=== PATIENT | male | born 1945 | race Caucasian/White ===

== ENCOUNTER 2021-11-06 11:59 | Emergency (ER) | payer MEDICARE ==
[~2021-11-06] VITALS: Ht 170.2 cm; Wt 106.6 kg
[~2021-11-06 11:59] MED LIST: ALBIPROI INH; ALBU.083IS; ALBU3IS; ALBU3IS INH; ALBU90I INH; ALBU90OI INH; ALBU90OI6 INH; ASPI81EC; BUDE6HFA INH; CIPR500 PO; CODACE30 PO; CYCL10 PO; DIAZ5 PO; DOXY100 PO; ENAL20; ENAL20 PO; FAMO20 PO; FAMO40 PO; FISH1000 PO; FLUSAL2505 IH; GLIP5 PO; GLUC500 PO; GLUCHON PO; HYDACE5 PO; HYDCHL25; HYDCHL50; HYDCHL50 PO; HYDPAM50 PO; IPRAIS; IPRAOI; LEVFLO500 PO; LISI20 PO; MECL25 PO; METF500; METF500 PO; MONT5TCH PO; MUPI2TO TOP; NAPR500 PO; OMEG1CAP30 PO; OXYACE5T PO; PENT400ER PO; POTCHL10ER; POTCHL10ER PO; POTCHL20ER; PRED10 PO; PRED20 PO; RXHYDACE PO
[2021-11-06 12:32] LABS: BASOPHILS ABSOLUTE AUTO 0.07 K/mm3 (0.00-0.23); BASOPHILS PERCENT AUTO 1 % (0-2); EOSINOPHILS ABSOLUTE AUTO 0.96 K/mm3 (0.00-0.68); EOSINOPHILS PERCENT AUTO 10 % (0-6); Hematocrit 38.8 % (37.0-53.0); Hemoglobin 12.8 g/dL (13.5-17.5); IMMATURE GRAN PERCENT AUTO 1 % (0-1); LYMPHOCYTES ABSOLUTE AUTO 2.33 K/mm3 (0.84-5.20); LYMPHOCYTES PERCENT AUTO 24 % (21-46); MONOCYTES PERCENT AUTO 6 % (4-13); Mean Corpuscular Volume 91 fL (80-100); Mean Platelet Volume 9.9 fL (9.1-12.4); NEUTROPHILS ABSOLUTE AUTO 5.56 K/mm3 (1.96-9.15); NEUTROPHILS PERCENT AUTO 58 % (41-73); Platelet Count 219 K/mm3 (150-400); RDW Standard Deviation 46.4 fL (35.1-46.3); Red Blood Cell Count 4.26 M/mm3 (4.30-5.90); White Blood Cell Count 9.62 K/mm3 (4.00-11.30)
[2021-11-06 12:50] LABS: Alanine Aminotransfer (ALT/SGP 74 U/L (12-78); Albumin, Blood 3.2 g/dL (3.4-5.0); Albumin/Globulin Ratio 0.8 (0.8-1.8); Alk Phos 42 U/L (50-136); Anion Gap 8 mmol/L (6-16); Aspartate Aminotrans (AST/SGOT 48 U/L (12-37); Bilirubin, Total 0.8 mg/dL (0.1-1.0); Blood Urea Nitrogen 13 mg/dL (8-24); Bun/Creatinine Ratio 13.2 (12.0-20.0); CO2, Blood 23 mmol/L (21-32); Calcium, Blood 9.1 mg/dL (8.5-10.1); Chloride, Blood 109 mmol/L (98-108); Creatinine, Blood 0.98 mg/dL (0.60-1.20); Globulin, Blood 3.9 g/dL (2.2-4.0); Glomerular Filtration Rate >60 (60-); Glucose, Blood 202 mg/dL (70-99); Potassium, Blood 3.9 mmol/L (3.5-5.5); Sodium, Blood 140 mmol/L (136-145); Total Protein, Blood 7.1 g/dL (6.4-8.2)
[2021-11-06] MEDS ORDERED: ZYRTEC10 M1 PO (14:17)
== END 2021-11-06 15:26 | disposition home or self-care (01) ==
LOC: ER 11:59
PROVIDERS: Physician Assistant
DX: D72.10 Eosinophilia, unspecified (principal); J44.9 Chronic obstructive pulmonary disease, unspecified; E11.9 Type 2 diabetes mellitus without complications; Z87.891 Personal history of nicotine dependence; Z79.84 Long term (current) use of oral hypoglycemic drugs; Z88.6 Allergy status to analgesic agent; Z88.1 Allergy status to other antibiotic agents; Z88.2 Allergy status to sulfonamides; Z88.8 Allergy status to other drugs, medicaments and biological substances
CPT/HCPCS: 36415; 71046; 80053; 83690; 83880; 84484; 85025